=== PATIENT | male | born 1975 | race Caucasian/White ===

== ENCOUNTER 2024-03-13 08:13 | Outpatient (AMB) | payer OTHER, SELFPAY ==
--- NOTE | 2024-03-13 08:13 | A.OFFVIS_ITS ---
Vital Signs 03/13/24 08:22 Height 5 ft 10 in Weight 310 lb BMI 44.5 BP 165/108 H Blood Pressure Location Rt brachial Position Sitting Pulse 83 Pulse Source Pulse Oximeter Pulse Oximetry (%) 97 Oxygen Delivery Method Room Air Intake Visit Reasons: Left Knee Pain Administrative Services Assistant Required: No Accompanied by: Self / Same As Patient Allergies ibuprofen [From Advil] Allergy (Unknown, Verified 03/13/24 08:21) Hives HPI HPI Left Knee Pain: Details: Patient is a 48-year-old male with prior history of left knee arthroscopy, morbid obesity, bilateral knee pain, multiple joint pain, gout, and occasional her knee pain presents today for initial evaluation of bilateral knee pain, left knee worse than the right. Denies any recent or past trauma, injury, or falls. Pain is localized to anterior aspects of both knees with minimal joint line tenderness. Pain increases with walking, weight bearing, climbing stairs, squatting, or cold weather. Patient attributes his pain due to obesity, sedentary lifestyle, and poor posture with prolonged sitting. 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 To this point, patient has not done any dedicated physical therapy, injections, x-ray or OTC or prescribed medication trials. He is interested to start with PT closer to his home. Patient is allergic to NSAIDs (hives). Denies any fever or chills, back pain, weakness, buckling or locking knee, numbness, tingling, burning, bladder or bowel dysfunction, or saddle an esthesia. Location: Bilateral knee pain Duration: Chronic pain for 3-4 years Characteristics of symptom or complaint: Aching, heavy, grinding Aggravating or associated factors: Standing, walking for long periods of time, climbing Relieving factors: Sitting, lidocaine patches, cold Treatment: None [facility] Medical History (Updated 03/13/24 @ 11:41 by GLORIA Perales) Gout Bilateral knee pain Back pain Hernia Morbid obesity with BMI of 40.0-44.9, adult Surgical History (Updated 03/13/24 @ 11:41 by GLORIA Perales) History of arthroscopy of left knee (~1989) Social History Alcohol intake: current Alcohol intake frequency: holidays/special occasions only Patient Tobacco Use Status: Former Tobacco user Review of Systems Const All systems reviewed & are unremarkable except as noted in HPI and below Physical Exam Vital Signs: Last Vital Signs Pulse 83 03/13/24 08:22 BP 165/108 H 03/13/24 08:22 Pulse Ox 97 03/13/24 08:22 Oxygen Delivery Method Room Air 03/13/24 08:22 BMI result Body Mass Index 44.5 General: Appears afebrile. Alert and oriented. Mood and affect appropriate. Follows and participates in conversation appropriately. Respiratory effort is unlabored. No cough. No nasal discharge. Able to transition from sit to stand unassisted. Ambulates with bilaterally normal heel strike and toe off. Results Reviewed Results Reviewed: No imaging is available for review. Assessment & Plan Assessment & Plan (1) Bilateral knee pain: Code(s): M25.561 - Pain in right knee; M25.562 - Pain in left knee Category: Medical (2) History of arthroscopy of left knee: Onset Date: ~1989 Code(s): Z98.890 - Other specified postprocedural states Category: Surgical (3) Bilateral primary osteoarthritis of knee: Code(s): M17.0 - Bilateral primary osteoarthritis of knee Category: Medical (4) Morbid obesity with BMI of 40.0-44.9, adult: Code(s): E66.01 - Morbid (severe) obesity due to excess calories; Z68.41 - Body mass index [BMI] 40.0-44.9, adult Category: Medical Plan Recommend formal physical therapy. Script provided for [facility] in [place], per patient's request closer to his home. Discussed interventional treatments for bilateral knee pain, including diagnostic nerve blocks for potential Sprint PNS trial or genicular RFA, therapeutic injections (cortisone vs gel), PRP, and longer term neuromodulation with SCS or PNS trials vs implants. Patient is not interested in neuromodulation or having implants but will consider therapeutic injections and RFA. Informational pamphlets provided. Will obtain knee xrays to assess degree of arthritis. Encouraged daily physical activity, good posture, adequate hydration, well balanced diet and weight loss. Consider topical diclofenac gel and Tylenol Arthritis, ice and heat therapy, elevation, rest for symptomatic pain relief. All questions and concerns have been answered and patient agreed with the treatment plan. Follow-up in 1-2 months to see response to physical therapy, if no response to physical therapy will consider further interventional strategy. Orders: Orders PT Evaluation and Treatment Today E66.01 - Morbid (severe) obesity due to excess calories, M17.0 - Bilateral primary osteoarthritis of knee, M25.561 - Pain in right knee, M25.562 - Pain in left knee, Z68.41 - Body mass index [BMI] 40.0-44.9, adult, Z98.890 - Other specified postprocedural states XR foot LT min 3V Today M17.0 - Bilateral primary osteoarthritis of knee, M25.561 - Pain in right knee, M25.562 - Pain in left knee, Z98.890 - Other specified postprocedural states XR foot RT min 3V Today M17.0 - Bilateral primary osteoarthritis of knee, M25.561 - Pain in right knee, M25.562 - Pain in left knee Coding Level of Care Code New Pt Level 4 (67412) Complex EM visit Add On G2211 Diagnoses Bilateral knee pain M25.561; M25.562 History of arthroscopy of left knee Z98.890 Bilateral primary osteoarthritis of knee M17.0 Morbid obesity with BMI of 40.0-44.9, adult E66.01; Z68.41
[2024-03-13 08:22] VITALS: BP 165/108; PULSE 83; O2SAT 97; BMI 44.5
== END 2024-03-13 08:54 | disposition home or self-care (01) ==
PROVIDERS: PCP Internal Medicine; Visit Provider Nurse Practitioner Family
DX: M25.561 Pain in right knee (principal); M25.562 Pain in left knee; Z98.890 Other specified postprocedural states; M17.0 Bilateral primary osteoarthritis of knee; E66.01 Morbid (severe) obesity due to excess calories; Z68.41 Body mass index [BMI] 40.0-44.9, adult
CPT/HCPCS: 99204

== ENCOUNTER → 2024-03-13 08:13 | Outpatient (BNVA) | payer OTHER, SELFPAY | PROVIDERS: PCP Internal Medicine; Visit Provider Nurse Practitioner Family ==